=== PATIENT | female | born 2005 | race Caucasian/White ===

== ENCOUNTER 2023-12-01 21:25 | Observation (INO) | payer OTHER, SELFPAY ==
--- NOTE | ~2023-12-01 | MR_ITS ---
EXAMINATION: MR brain/brain stem wo con DATE: 12/03/2023 11:22 INDICATION: New onset seizure. TECHNIQUE: Magnetic resonance imaging (MRI) of the brain and brainstem was performed without intraven ous contrast. COMPARISON: Head CT 12/01/2023 FINDINGS: There is no intracranial hemorrhage, acute infarction, or abnormal intracranial mass lesion . There is a punctate focus of increased T2-weighted signal intensity in the right frontal lobe deep white matter, which is normal as an isolated finding. The hippocampi are normal and symmetric. The ve ntricles are normal in size. There is mild mucosal thickening in the ethmoid sinuses. The orbits are normal. The mastoid air cells are normal. IMPRESSION: 1. Normal brain. Reviewed, dictated and finalized at location A. PREVENTION LEAD IMPRESSION: 1. Normal brain.
--- NOTE | ~2023-12-01 | CT_ITS ---
EXAMINATION: CT brain wo con DATE: 12/01/2023 22:17 INDICATION: new onset seizure . TECHNIQUE: Computed tomography (CT) of the head was performed without intravenous contrast. The mA wa s adjusted according to patient size. Iterative reconstruction technique was employed. The dose-lengt h product was 605.33 mGy-cm. COMPARISON: None. FINDINGS: No acute intracranial hemorrhage or extra-axial fluid collection. No hydrocephalus, mass, or herniation. No acute ischemic infarct. Unremarkable dural venous sinus attenuation. No acute osseous abnormality. The aerated spaces are clear. IMPRESSION: No acute intracranial process. Reviewed, dictated and finalized at location K. [employer]SH[employer] B[employer]ER
[2023-12-01 21:24] VITALS: BP 146/95; PULSE 136; RESP 19; TEMP 37.2; O2SAT 100
[2023-12-01 21:30] VITALS: BP 146/95; PULSE 138; RESP 21; O2SAT 100
--- NOTE | 2023-12-01 21:40 | ECG_ITS ---
Measurements Intervals [place] Rate: 136 P: 48 CT: 136 QRS: 59 QRSD: 75 T: 37 QT: 353 QTc: 533 Interpretive Statements SINUS TACHYCARDIA NONSPECIFIC T-WAVE ABNORMALITY- INFERIOR LEADS ABNORMAL ECG NO PREVIOUS ECG AVAILABLE FOR COMPARISON Electronically Signed On 12-02-2023 16:29:31 [employer] by Valdemar West D.O.
[2023-12-01 21:47] VITALS: PULSE 133; RESP 19; O2SAT 100
[2023-12-01] MEDS: SODIUM CHLORIDE 0.9% IV 2,000 ML 999 ML IV CONT (21:48)
[2023-12-01 21:52] LABS: Basophils Absolute Auto 0.1 K/mm3 (0.0-0.1); Basophils Percent Auto 0.7 % (0.2-1.2); Eosinophils Absolute Auto 0.6 K/mm3 (0-0.3); Eosinophils Percent Auto 4.4 % (0-4.4); Hematocrit 43.5 % (37.0-47.0); Hemoglobin 14.4 g/dL (12.0-15.0); Immature Granulocyte Absolute 0.05 K/mm3 (0.00-0.031); Immature Granulocyte Percent A 0.4 % (0-0.5); Lymphocytes Absolute Auto 2.37 K/mm3 (0.9-3.2); Lymphocytes Percent Auto 17.7 % (18.3-44.2); Mean Corpuscular HGB Conc 33.1 g/dl (32-36); Mean Corpuscular Hemoglobin 30.3 pg (26-34); Mean Corpuscular Volume 91.4 fl (80-100); Mean Platelet Volume 9.1 fl (7.4-10.4); Monocytes Absolute Auto 0.8 K/mm3 (0.1-0.6); Monocytes Percent Auto 6.3 % (2.6-8.5); Neutrophils Absolute Auto 9.5 K/mm3 (1.3-6.7); Neutrophils Percent Auto 70.5 % (45.5-73.1); Platelet Count Result 375 k/mm3 (150-375); Red Blood Count 4.76 M/mm3 (4.2-5.4); Red Cell Distribution Width 12.1 % (11.5-14.5); White Blood Count 13.4 K/mm3 (4.5-10.0)
[2023-12-01 21:53] LABS: Glucose Point of Care 92 mg/dl (65-105)
[2023-12-01 22:00] VITALS: PULSE 138; RESP 20; O2SAT 100
--- NOTE | 2023-12-01 22:04 | ED.GENADULT ---
HPI - General Adult General Chief complaint: Seizure Stated complaint: NEW ONSET SZ History of Present Illness HPI narrative: This is a 18-year-old female presenting with seizure activity. She was at home playing video games with her family heard a thud from the other room. When they came in she was lying face down on the floor with generalized tonic clonic seizure activity. She then awoke and under 5 minutes. She was then postictal that time. No tongue biting or loss of continence. Of note the patient has been on Xanax for 2 years. She ran out of her prescription 3 days ago and has not taken any. Additionally the patient does not sleep very much at night typically gets for 5 hours of sleep a night she is playing video games. Denies use of drugs or alcohol. no history of seizures. Related Data Allergies Allergy/AdvReac Type Severity Reaction Status Date / Time No Known Allergies Allergy Mild Unverified 06/24/09 19:24 [facility] Past Medical History Medical History Anxiety Asthma Exam Narrative: APPEARANCE: No apparent distress. Head: atraumatic. EYES: EOMI, NOSE: Atraumatic NECK: Trachea midline RESPIRATORY: No increased rate of breathing , clear to auscultation CARDIOVASCULAR: RRR, ABDOMINAL: Non-distended MUSCULOSKELETAl: No obvious deformities NEURO: Alert.Cranial nerves 2-12 grossly intact. Sensation light touch, motor function cerebellar function intact for 4 extremities. Gait exam was normal. SKIN:: Warm, dry. Normal color PSYCHIATRIC: Normal affect Course Vital Signs Vital signs: Vital Signs Temperature 98.9 F 12/01/23 21:24 Pulse Rate 136 H 12/01/23 21:24 Respiratory Rate 19 12/01/23 21:24 Blood Pressure 146/95 H 12/01/23 21:24 Pulse Oximetry 100 12/01/23 21:24 Oxygen Delivery Room Air 12/01/23 21:24 Temperature 98.9 F 12/01/23 21:24 Pulse Rate 126 H 12/02/23 00:33 Respiratory Rate 23 H 12/02/23 00:10 Blood Pressure 140/90 12/02/23 00:10 Pulse Oximetry 100 12/02/23 00:31 Oxygen Delivery Room Air 12/02/23 00:31 Medical Decision Making MDM Narrative Medical decision making narrative: -Course: 18-year-old female presenting with new onset seizure. Patient is at increased risk factor for seizure due to recent cessation of benzodiazepines ,lack of sleep, and UTI. On my evaluation has no neurologic deficits and returned to baseline mental status. CT head/lab work within normal limits. Patient is persistently tachycardic despite fluid resuscitation and Valium administration. Patient to be placed in observation for evaluation by Neurology. -DDX includes but is not limited to: New onset seizure, benzo withdrawal -Co-morbidities complicating care: anxiety, asthma -Social determinants of health: unemployed, lives with her mom -Hx from independent Sources: mother father bedside -Independent interpretation of studies: White count of 13.4. -Discussion of Management/Consultants: Clive willamsist -Interventions: 10 mg Valium -Shared decision making / Disposition: observation. Vital Signs Vital Signs: Vital Signs Temperature 98.9 F 12/01/23 21:24 Pulse Rate 136 H 12/01/23 21:24 Respiratory Rate 19 12/01/23 21:24 Blood Pressure 146/95 H 12/01/23 21:24 Pulse Oximetry 100 12/01/23 21:24 Oxygen Delivery Room Air 12/01/23 21:24 Temperature 98.9 F 12/01/23 21:24 Pulse Rate 126 H 12/02/23 00:33 Respiratory Rate 23 H 12/02/23 00:10 Blood Pressure 140/90 12/02/23 00:10 Pulse Oximetry 100 12/02/23 00:31 Oxygen Delivery Room Air 12/02/23 00:31 Lab Data 12/01/23 21:44 12/01/23 22:30 Labs: Lab Results 12/01/23 12/01/23 12/01/23 Range/Units 21:44 21:51 22:30 WBC 13.4 H (4.5-10.0) K/mm3 RBC 4.76 (4.2-5.4) M/mm3 Hgb 14.4 (12.0-15.0) g/dL Hct 43.5 (37.0-47.0) % MCV 91.4 (80-100) fl MCH 30.3
[2023-12-01 23:02] LABS: Ethanol < 10 mg/dL (<10)
[2023-12-01 23:05] LABS: Alanine Aminotransferase 13 U/L (6-35); Alkaline Phosphatase 69 U/L (38-126); Anion Gap 8 mmol/L (8-16); Aspartate Amino Transferase 18 U/L (14-36); Bilirubin,Total 0.3 mg/dL (0.2-1.3); Blood Urea Nitrogen 7 mg/dL (7-17); Calcium 8.5 mg/dL (8.4-10.2); Carbon Dioxide 23 mmol/L (22-30); Chloride 106 mmol/L (98-107); Estimated CRCL calculation 106 ml/min; Estimated Glomerular Filt Rate > 60; Glucose 111 mg/dL (65-110); Sodium 137 mmol/L (137-145)
[2023-12-01] MEDS: diazePAM INJ (*CRX) 10 MG/2 ML SYRINGE IV PUSH (23:15)
[2023-12-02] VITALS (13 sets, daily range): BP systolic 127–140; BP diastolic 79–90; PULSE 100–137; RESP 15–23; TEMP 36.3–36.6; O2SAT 95–100; BMI 32.1
[2023-12-02 00:35] LABS: Appearance Urine Cloudy (Clear); Bacteria Urine 4+ /hpf; Bilirubin Urine Negative (Negative); Blood Urine Negative (Negative); Color Urine Yellow (Yellow); Glucose Urine UA Negative (Negative); Ketones Urine Negative (Negative); Leukocyte Esterase Ur 1+ LEU/UL (Negative); Nitrate Urine Negative (Negative); Non Pathogenic Casts 0-2; Protein Urine Negative (Negative); RBC Urine 0-2 /hpf (0-2); Specific Grav Ur 1.008 (1.001-1.035); Squamous Epithelial Cell Urine Many /hpf (Few); Urobilinogen Urine 0.2 mg/dL (<2.0); WBC Urine 51-100 /hpf
[2023-12-02 00:37] LABS: Add Urine Microscopic? YES
[2023-12-02 00:52] LABS: Barbiturate Screen Urine Negative (Negative); Benzodiazepines Screen Urine Positive (Negative)
[2023-12-02 01:01] LABS: Amphetamine Screen Urine Negative (Negative); Cannabinoid Screen Urine Negative (Negative); Cocaine Screen Urine Negative (Negative); Methadone Screen Urine Negative (Negative); Opiate Screen Urine Negative (Negative); Phencyclidine Screen Urine Negative (Negative)
--- NOTE | 2023-12-02 03:23 | ADMGEN ---
This patient, Jaclyn Sarabia, was admitted to 3 [facility] Surg Room 325-01. Patient/family oriented to hospital policies and general routines including ID bracelet, bed and alarms, visiting hours, pain management, procedures, bathroom and other care routines, personal items, smoking policy, room service/diet, and visiting hours. Information on how to activate the Rapid Response Team has been discussed. Patient/Family are encouraged to report perceived risks to care and to ask questions if they do not understand what they are told or what they should do.
[2023-12-02] MEDS: ALBUTEROL SULFATE (*SP) AEROSOL 1 PUFF 2 PUFF INHALATION (05:05)
[2023-12-02] MEDS: ALPRAZolam (*CRX) 0.5 MG TABLET PO ×2 (05:11→12:02)
[2023-12-02 09:03] LABS: Basophils Absolute Auto 0.1 K/mm3 (0.0-0.1); Basophils Percent Auto 0.8 % (0.2-1.2); Eosinophils Absolute Auto 0.5 K/mm3 (0-0.3); Hematocrit 38.5 % (37.0-47.0); Hemoglobin 12.8 g/dL (12.0-15.0); Immature Granulocyte Absolute 0.08 K/mm3 (0.00-0.031); Immature Granulocyte Percent A 0.8 % (0-0.5); Lymphocytes Absolute Auto 3.48 K/mm3 (0.9-3.2); Lymphocytes Percent Auto 33.3 % (18.3-44.2); Mean Corpuscular HGB Conc 33.2 g/dl (32-36); Mean Corpuscular Hemoglobin 30.5 pg (26-34); Mean Corpuscular Volume 91.9 fl (80-100); Monocytes Absolute Auto 0.8 K/mm3 (0.1-0.6); Neutrophils Absolute Auto 5.5 K/mm3 (1.3-6.7); Neutrophils Percent Auto 52.1 % (45.5-73.1); Platelet Count Result 319 k/mm3 (150-375); Red Blood Count 4.19 M/mm3 (4.2-5.4); Red Cell Distribution Width 12.3 % (11.5-14.5); White Blood Count 10.4 K/mm3 (4.5-10.0)
[2023-12-02 09:15] LABS: Anion Gap 9 mmol/L (8-16); Blood Urea Nitrogen 4 mg/dL (7-17); Calcium 9.2 mg/dL (8.4-10.2); Carbon Dioxide 24 mmol/L (22-30); Chloride 108 mmol/L (98-107); Estimated CRCL calculation 104 ml/min; Estimated Glomerular Filt Rate > 60; Glucose 92 mg/dL (65-110); Sodium 141 mmol/L (137-145)
--- NOTE | 2023-12-02 11:03 | WPDNEURCNPN ---
Assessment and Plan Assessment and plan (1) New onset seizure: Code(s): R56.9 - Unspecified convulsions Status: Acute (2) Chronically on benzodiazepine therapy: Code(s): Z79.899 - Other fdc (current) drug therapy Status: Acute (3) Anxiety: Code(s): F41.9 - Anxiety disorder, unspecified Status: Acute Plan 1. Generalized seizure question related to the drugs withdrawal or with underlying basic diagnosis of lower threshold for the seizure disorder. Initial CT scan of the head is negative will obtain the EEG and then MRI of the brain as well further discussion will be made with the family accordingly. Consult date: 12/02/23 HPI: Jaclyn Sarabia is a 18 year old female Admitted to the hospital through the emergency room for the possibility of seizure. As per the information she was at home playing video games when her family heard a thud from the other room and when he came in her room she was laying face down on the floor with shaking both upper and lower extremities she awoke [id number] later but definitely was in postictal condition she did not lose the control of the bowel bladder patient had been taking Xanax for more than 2 years and has run out of the prescription medication 3 days ago she does not sleep very well she gave no history taking any other drugs or alcohol. She is not allergic to any medication. And initial exam in the emergency room revealed her to have no focal neurological deficit she was afebrile with blood pressure 146/95 her routine lab studies including the CBC revealed only mild leukocytosis basic metabolic panel was normal and all the routine studies of the are negative. Drug screen was negative alcohol level was less than 10. Initial CT scan of the head was normal. Review of Systems Review of Systems: All systems reviewed & are unremarkable except as noted in HPI and below PMFSH Past Medical History Medical History Anxiety Asthma Social History Social History Smoking status: Never smoker Second hand tobacco smoke exposure: Yes Alcohol intake: never Substance use: never Do You Feel Safe in your Home?: Yes Lack of Transportation: No Lack of Food: Never True Current Housing: I Have Housing Concerned About Future Housing: No Difficulty Paying Gas/Electric Bills: No Difficulty Paying for Meds: No Currently Unemployed: YES Education: High School Diploma/GED Difficulty w/ Childcare or Family Care: No Spiritual care concerns: No Meds Home Medications and Allergies Home Medications Medication Instructions Recorded Confirmed Type albuterol sulfate 90 mcg/actuation 2 puff inhalation Q4-6H PRN 12/02/23 12/02/23 History aerosol inhaler Shortness Of Breath alprazolam 0.5 mg tablet 0.5 mg PO TID PRN Anxiety 12/02/23 12/02/23 History bupropion HCl 150 mg 24 hr tablet, 150 mg PO DAILY 12/02/23 12/02/23 History extended release norethindrone 1 mg-ethinyl 1 tablet PO DAILY 12/02/23 12/02/23 History estradiol 20 mcg (24)-iron 75 mg (4) tablet (Blisovi 24 Fe) venlafaxine 37.5 mg 37.5 mg PO DAILY 12/02/23 12/02/23 History capsule,extended release 24 hr Allergies Allergy/AdvReac Type Severity Reaction Status Date / Time No Known Allergies Allergy Mild Unverified 12/02/23 04:04 Vital Signs Vital Signs - 24 hr 12/01/23 21:24 12/02/23 00:31 12/02/23 00:33 Temperature 37.2 C Pulse Rate 136 H 126 H Respiratory Rate 19 Blood Pressure 146/95 H Pulse Oximetry 100 100 Oxygen Delivery Room Air Room Air 12/01/23 21:30 12/01/23 21:47 12/01/23 22:00 Temperature Pulse Rate 138 H 133 H 138 H Respiratory Rate 21 H 19 20 Blood Pressure 146/95 H Pulse Oximetry 100 100 100 Oxygen Delivery 12/02/23 00:09 12/02/23 00:10 12/02/23 01:49 Temperature Pulse Rate 137 H 126 H 108 H Resp
--- NOTE | 2023-12-02 12:53 | PM.IMHP ---
H&P: HPI History of Present Illness Date/Time: 12/02/23 12:53 Chief Complaint: new onset seizure activity Narrative: Patient is 18 YO female with only PMH of anxiety admitted for seizure activity. Her mother is at the bedside and provides additional history. She was at home playing video games in her bed when her family heard a thud from the other room. When they came in she was lying face down on the floor with rapid flailing and body movements. Her mother could not tell me how long this lasted, but her eyes were temporarily blood shot and her lips were blue upon turning her over. She awaoke, but wanted to fall back asleep. She initially could not answer simple questions and was confused. The patient does not remember any of the seizure or how she got to a sitting up position. She was postictal that time. No tongue biting or loss of continence. Only minor spot on her left elbow from the carpet. Patient has been on Xanax for 2 years, but had not taken for 3 days as she ran out of her prescription. She was switched to Wellbutrin from her previous anti-depressant approximately 3 months ago which she has been taking. Mother reports her paternal grandmother had history of seizures which also began after taking the same anti-depressant. Patient does not sleep very much at night, typically only gets for 5 hours of sleep a night. Denies use of drugs or alcohol. No history of seizures in infancy or herself or immediate family. Patient reportedly did not eat much yesterday, but no known BS regulation issues or DM. Patient has had UTI infections before, but usually has concurrent symptoms which she did not this time. Her UA was indicative on infection, UA culture pending but continuing Rocephin. CT head was negative for injury, trauma or acute process. UDS was positive for benzodiazepines only, blood alcohol negative. Labs otherwise unremarkable aside from mild leukocytosis. Neurology consulted and ordered EEG and MRI, pending results. EKG ordered and pending. Will continue to nonitor and await neurology evaluation. Holding current antidepressants, but will continue Xanax. Review of Systems Review of Systems: All systems reviewed & are unremarkable except as noted in HPI and below PMFSH Past Medical History Medical History Anxiety Asthma Social History Social History (Reviewed 12/02/23 @ 13:02 by YINKA Juan Smoking status: Never smoker Second hand tobacco smoke exposure: Yes Alcohol intake: never Substance use: never Do You Feel Safe in your Home?: Yes Lack of Transportation: No Lack of Food: Never True Current Housing: I Have Housing Concerned About Future Housing: No Difficulty Paying Gas/Electric Bills: No Difficulty Paying for Meds: No Currently Unemployed: YES Education: High School Diploma/GED Difficulty w/ Childcare or Family Care: No Spiritual care concerns: No Meds Home Medications and Allergies Home Medications Medication Instructions Recorded Confirmed Type albuterol sulfate 90 mcg/actuation 2 puff inhalation Q4-6H PRN 12/02/23 12/02/23 History aerosol inhaler Shortness Of Breath alprazolam 0.5 mg tablet 0.5 mg PO TID PRN Anxiety 12/02/23 12/02/23 History bupropion HCl 150 mg 24 hr tablet, 150 mg PO DAILY 12/02/23 12/02/23 History extended release norethindrone 1 mg-ethinyl 1 tablet PO DAILY 12/02/23 12/02/23 History estradiol 20 mcg (24)-iron 75 mg (4) tablet (Blisovi 24 Fe) venlafaxine 37.5 mg 37.5 mg PO DAILY 12/02/23 12/02/23 History capsule,extended release 24 hr Allergies Allergy/AdvReac Type Severity Reaction Status Date / Time No Known Allergies Allergy Mild Unverified 12/02/23 04:04 Vital Signs Vital Signs - 24 hr 12/01/23 21:24 12/02/23 00:31 12/02/23 00:33 Temperature 98.9 F Pulse Rate 136 H 126 H Respiratory Rate 19 Blood Pressure 146/95 H Pulse Oximetry 100 100 O
[2023-12-02] MEDS: ACETAMINOPHEN 325 MG TABLET 650 MG PO (21:39)
[2023-12-03 06:00] VITALS: BP 123/80; PULSE 105; RESP 22; TEMP 36.6; O2SAT 97
[2023-12-03 07:31] LABS: Hematocrit 39.8 % (37.0-47.0); Hemoglobin 13.3 g/dL (12.0-15.0); Mean Corpuscular HGB Conc 33.4 g/dl (32-36); Mean Corpuscular Hemoglobin 30.6 pg (26-34); Mean Corpuscular Volume 91.5 fl (80-100); Mean Platelet Volume 8.9 fl (7.4-10.4); Platelet Count Result 316 k/mm3 (150-375); Red Blood Count 4.35 M/mm3 (4.2-5.4); White Blood Count 8.3 K/mm3 (4.5-10.0)
[2023-12-03 07:43] LABS: Anion Gap 11 mmol/L (8-16); Blood Urea Nitrogen 8 mg/dL (7-17); Calcium 9.2 mg/dL (8.4-10.2); Carbon Dioxide 25 mmol/L (22-30); Chloride 104 mmol/L (98-107); Estimated CRCL calculation 104 ml/min; Estimated Glomerular Filt Rate > 60; Glucose 87 mg/dL (65-110); Potassium 3.9 mmol/L (3.4-5.0); Sodium 140 mmol/L (137-145)
[2023-12-03] MEDS: buPROPion HCL XL (24 HR) 150 MG TABCR PO (08:37)
[2023-12-03] MEDS: VENLAFAXINE HCL XR 37.5 MG CAP PO (08:37)
--- NOTE | 2023-12-03 09:06 | WPDNEUROLOGY ---
Neurology EEG Report General Information Date of Study: 12/02/23 TEST eeg DIAGNOSIS New onset seizure CONDITION OF RECORDING awake drowsy and sleep EEG NUMBER [id number] CLINICAL HISTORY patient's mother reported patient was playing her box last night, got up to use the bathroom, fell face 1st and was convulsing with no history of seizures in the past EEG DESCRIPTION basic resting occipital frequency consists of low-voltage 11 to 13 hertz per 2nd alpha admixed with low-voltage 15 to 18 hertz per 2nd beta activity. Bilateral symmetrical sleep activity seen during sleep with symmetrical K complexes as well. Hyperventilation not done. Photic stimulation not done. Non paroxysmal. Nonfocal. Nonlateralizing. IMPRESSION Normal record
--- NOTE | 2023-12-03 12:54 | PM.DS ---
DS: Admitting Diagnosis Discharge Date 12/03/23 Admitting Diagnosis new onset seizure DS: Discharge Diagnosis Discharge Diagnosis (1) New onset seizure: Code(s): R56.9 - Unspecified convulsions Status: Acute Assessment and Plan: CT brain showed no acute intracranial process. Neurology consulted - follow up outpatient in 6 months Keppra 500 BID EEG, MRI were both normal EKG unremarkable (2) UTI (urinary tract infection): Code(s): N39.0 - Urinary tract infection, site not specified Status: Ruled-out Assessment and Plan: UA culture negative (3) Anxiety: Code(s): F41.9 - Anxiety disorder, unspecified Status: Acute Assessment and Plan: holding anti-depressants per mother continue home Xanax (4) Asthma: Code(s): J45.909 - Unspecified asthma, uncomplicated Status: Acute Assessment and Plan: continue PRN inhaler DS: Summary Hospital Course Hospital Course: Patient is 18 YO female with only PMH of anxiety and asthma admitted for new onset seizure activity. Patient has been on Xanax for 2 years, but had not taken for 3 days as she ran out of her prescription. She was switched to Wellbutrin from her previous anti-depressant approximately 3 months ago which she has been taking. Mother reports her paternal grandmother had history of seizures which also began after taking the same anti-depressant. Patient does not sleep very much at night, typically only gets for 5 hours of sleep a night. Denies use of drugs or alcohol. No history of seizures in infancy or herself or immediate family. Patient reportedly did not eat much yesterday, but no known BS regulation issues or DM. Patient has had UTI infections before, but usually has concurrent symptoms which she did not this time. Her UA was indicative of infection, UA culture was negative. Will d/c AB. CT head was negative for injury, trauma or acute process. UDS was positive for benzodiazepines only, blood alcohol negative. Labs otherwise unremarkable aside from mild leukocytosis. Neurology consulted and ordered EEG and MRI, both were normal. EKG unremarkable. Neurology to follow up outpatient in 6 months, will continue Keppra 500 mg BID. Holding current antidepressants, but will continue Xanax. Status at Discharge Functional status at discharge: independent ambulation Overall status at discharge: patient is back to baseline Time Spent with Patient Time attestation: Total time spent providing and/or coordinating discharge services: Exam Narrative: GENERAL: Well-nourished, well-appearing young female. No acute distress. Head: atraumatic. EYES: EOMI, PERRLA NECK: Trachea midline, supple RESPIRATORY: Lungs clear to auscultation CARDIOVASCULAR: RRR, no murmurs. ABDOMINAL: Non-distended, non-tender. BS present and active. MUSCULOSKELETAL: No obvious deformities, strength 5/5. No edema. normal ROM NEURO: Alert and oriented x4. .Cranial nerves 2-12 grossly intact. Sensation light touch, motor function cerebellar function intact for 4 extremities. Gait exam was normal. SKIN: Warm, dry. Normal color PSYCHIATRIC: Normal affect. Pleasant and appropriate. No SI or hallucinations. DS: Data Data Completed and Pending Labs on day of discharge: Labs from last 24 hours 12/03/23 07:18 WBC 8.3 RBC 4.35 Hgb 13.3 Hct 39.8 MCV 91.5 MCH 30.6 MCHC 33.4 RDW 12.0 Plt Count 316 MPV 8.9 Sodium 140 Potassium 3.9 Chloride 104 Carbon Dioxide 25 Anion Gap 11 BUN 8 Creatinine 0.70 Estim Creat Clear Calc 104 Estimated GFR > 60 Glucose 87 Calcium 9.2 Discharge Plan Discharge Attending physician on discharge: Eliot Gentile Consulting providers: Shar Garcia Discharging Clinician: Bess Lacy Anticipated Discharge Date/Time: 12/03/23 12:03 Patient Disposition: Home, Self-Care Activity: as tolerated Diet: regular Discharge Instructions: No driving for
[2023-12-03] MEDS: ALPRAZolam (*CRX) 0.5 MG TABLET PO (12:58)
== END 2023-12-03 13:28 | disposition home or self-care (01) ==
LOC: ANHED 12-02 01:23 → ANH3MEDSUR 12-02 03:11
PROVIDERS: Nurse Practitioner; Admitting Provider Internal Medicine; Emergency Provider Emergency Medicine; PCP Family Medicine; Visit Provider Internal Medicine
DX: R56.9 Unspecified convulsions (principal); N39.0 Urinary tract infection, site not specified; F41.9 Anxiety disorder, unspecified; J45.909 Unspecified asthma, uncomplicated; Z79.51 Long term (current) use of inhaled steroids; Z79.3 Long term (current) use of hormonal contraceptives; Z79.899 Other long term (current) drug therapy; Z84.89 Family history of other specified conditions
CPT/HCPCS: 36415; 70450; 70551; 80048; 80053; 80307; 81001; 81025; 82948; 84443; 85025; 85027; 87086; 93005; 95816; 96361; 96365; 96374; 99285; A9270; G0378; J0696; J3360; J7030

== ENCOUNTER 2025-07-16 13:01 | Emergency (ER) | payer OTHER, MEDICAID, SELFPAY ==
[2025-07-16 13:11] VITALS: BP 136/80; PULSE 129; RESP 20; TEMP 37.1; O2SAT 98
--- NOTE | 2025-07-16 13:23 | ED.FEMALEGU ---
HPI - Female Genitourinary General Chief complaint: Urogenital-Female Stated complaint: Needs A Test patient presents to the [facility] with complaints of missed menstrual cycle. Noted she is 26 days late. Patient reports at home testing has been negative. Patient is sexually active with 1 partner, denies any use of control, denies any concern for STDs at this time. Patient does also report right-sided lower back pain and abdominal cramping. denies fever, chills, body aches, burning with urination, blood in urine, vaginal discharge, nausea, vomiting, diarrhea. Related Data Home Medications ?Medication ?Instructions ?Recorded ?Confirmed ?Last Taken ?Type albuterol sulfate 90 mcg/actuation 2 puff inhalation Q4-6H PRN 12/02/23 12/02/23 Unknown History aerosol inhaler Shortness Of Breath bupropion HCl 150 mg 24 hr tablet, 150 mg PO DAILY 12/02/23 12/02/23 Unknown History extended release norethindrone 1 mg-ethinyl 1 tablet PO DAILY 12/02/23 12/02/23 Unknown History estradiol 20 mcg (24)-iron 75 mg (4) tablet (Blisovi 24 Fe) venlafaxine 37.5 mg 37.5 mg PO DAILY 12/02/23 12/02/23 Unknown History capsule,extended release 24 hr sertraline 50 mg tablet mg 07/16/25 Unknown History Allergies Allergy/AdvReac Type Severity Reaction Status Date / Time No Known Allergies Allergy Mild Verified 07/16/25 13:04 Review of Systems Constitutional: Constitutional: Reports as per HPI, Denies chills and Denies fatigue Eyes: Eyes: Reports no additional eye complaints Cardiovascular: Cardiovascular: Reports no additional cardiovascular complaints Respiratory: Respiratory: Reports no additional respiratory complaints Gastrointestinal: Gastrointestinal: Reports as per HPI, Reports abdominal pain ( Lower abdominal cramping), Denies constipation, Denies heartburn, Denies diarrhea, Denies nausea and Denies vomiting Genitourinary: Genitourinary: Reports as per HPI, Denies abnormal vaginal bleeding, Denies hematuria, Denies nocturia, Denies genital lesions, Denies dysuria, Denies pelvic pain, Denies flank pain, Denies urinary incontinence and Denies vaginal discharge Comments: missed menstrual cycle. Twenty-six days late. Musculoskeletal: Musculoskeletal: Reports as per HPI and Reports back pain Integumentary/Breasts: Skin/Breast: Reports as per HPI Neurologic: Reports as per HPI, Denies headache(s) and Denies weakness Psychiatric: Psychiatric: Reports no additional psychiatric complaints Endocrine: Endocrine: Reports no additional endocrine complaints Hematologic/Lymphatic: Hematologic/Lymphatic: Reports no additional hematologic/lymphatic complaints Allergic/Immunologic: Allergic/Immunologic: Reports no additional allergic/immunologic complaints PMFSH Past Medical History Medical History Anxiety Asthma Social History Social History (System 12/15/23 @ 09:50 by Parveen Dunn) Smoking status: Never smoker Second hand tobacco smoke exposure: Yes Alcohol intake: never Substance use: never Do You Feel Safe in your Home?: Yes Lack of Transportation: No Lack of Food: Never True Current Housing: I Have Housing Concerned About Future Housing: No Difficulty Paying Gas/Electric Bills: No Difficulty Paying for Meds: No Currently Unemployed: YES Education: High School Diploma/GED Difficulty w/ Childcare or Family Care: No Spiritual care concerns: No Exam Const: General: healthy appearing and no acute distress Nutritional Appearance: well nourished Orientation/consciousness: patient oriented x3 Limitations: no limitations Resp: Effort & Inspection: normal respiratory effort Auscultation: clear to auscultation bilaterally Cardio: Rate: regular rate Rhythm: regular rhythm GI: Inspection: non-distended GI Palp: Yes Soft to palpation, No Tenderness to palpation present (GI), No Guarding due to palpation present (GI), No Rigid due to palpation, No Hernia present, No Palpable mass present and No Rebound tenderness present Auscultation: normal bowel sounds : General: Yes bladder normal to palpation and No no CVA tenderness Back/Spine/Pelvis: Back: no CVA tenderness Skin: General skin exam: normal color Rashes: no rashes Wounds: no wounds Neuro: General: patient oriented x3 Speech: normal speech Gait exam (Neuro): Normal gait present Psych: Appearance: grossly normal Mental Status: mental status grossly normal Affect: normal affect Attitude: cooperative Course Course Level of Care: Express Care Visit Vital Signs Vital signs: Vital Signs Temperature 98.8 F 07/16/25 13:11 Pulse Rate 129 H 07/16/25 13:11 Respiratory Rate 20 07/16/25 13:11 Blood Pressure 136/80 07/16/25 13:11 Pulse Oximetry 98 07/16/25 13:11 Oxygen Delivery Room Air 07/16/25 13:11 Temperature 98.8 F 07/16/25 13:11 Pulse Rate 129 H 07/16/25 13:11 Respiratory Rate 20 07/16/25 13:11 Blood Pressure 136/80 07/16/25 13:11 Pulse Oximetry 98 07/16/25 13:11 Oxygen Delivery Room Air 07/16/25 13:11 MDM - Female Genitourinary MDM Narrative Medical decision making narrative: testing in clinic negative. UA completed in clinic. Patient has scheduled acid treater August 05. Educated patient on several signs and symptoms that would need ER evaluation The patient was evaluated by myself in the [facility] care. History is obtained from patient who is an independent historian and physical exam was performed. Available medical records were reviewed at this time. Exam findings show no acute concerns or changes; patient is non-toxic appearing and is in no distress. Patient is appropriate for outpatient treatment and follow-up. I have evaluated and discussed social determinants of health with the patient that could potentially impact subsequent diagnosis and treatment plans. Differential diagnosis and treatment plan were discussed with the patient. Patient agrees with discussion and after shared medical decision making agrees with plan of care. All questions were answered to the patient's satisfaction. Differential Diagnosis Differential diagnosis: Likely urinary tract infection, bacterial vaginosis, trichomoniasis, ovarian cyst, vaginitis, ruptured ovarian cyst and cystitis Medical Records Attestation: I reviewed the patient's medical records. Lab Data Attestation: I reviewed the patient's lab results. Discharge Plan Discharge Clinical Impression: Encounter for test with result negative, Missed menses Patient Disposition: Home Condition: Stable Instructions: Antibiotic Form, Menorrhagia (ED) Additional Instructions: your testing is negative and clinic today. There are no significant signs of urinary tract infection in your urine. We will send this for culture for further evaluation. We will call you if you need to be put on antibiotics. 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 If you began to have significant abdominal pain cramping, vaginal bleeding, or any other concerning symptoms you should be evaluated in the emergency room with labs and ultrasound. May use Tylenol or ibuprofen for your lower back pain and abdominal cramping. Patient Language: Russian Prescriptions: No Action sertraline 50 mg tablet venlafaxine 37.5 mg capsule,extended release 24hr 37.5 mg PO DAILY albuterol sulfate 90 mcg/actuation HFA aerosol inhaler 2 puff INHALATION Q4-6H PRN (Reason: Shortness Of Breath) bupropion HCl 150 mg tablet extended release 24 hr 150 mg PO DAILY Blisovi 24 Fe 1 mg-20 mcg (24)/75 mg (4) tablet 1 tablet PO DAILY levetiracetam [Keppra] 500 mg Tablet 500 mg PO Q12HR Qty: 60 0RF Follow-up/Referrals: Priscila,Carlene Martin MD [Primary Care Provider] Time of Disposition: 13:38
[2025-07-16 13:26] LABS: BEDSIDEPREGUCG Negative (Negative)
[2025-07-16 13:36] LABS: EDUAAPPEAR Cloudy; EDUABILI Negative (Negative); EDUABLOOD Negative (Negative); EDUACOLOR1 Yellow; EDUAGLUCOSE Negative (Negative); EDUAKETONE Negative (Negative); EDUALEUKO Trace (Negative); EDUANITRATE Negative (Negative); EDUAPH 7.0; EDUAPROTEIN Negative (Negative); EDUASPGRAVITY 1.020; EDUAUROBILI 0.2
== END 2025-07-16 13:45 | disposition home or self-care (01) ==
PROVIDERS: Emergency Provider Nurse Practitioner Family; PCP Family Medicine
DX: Z32.02 Encounter for pregnancy test, result negative (principal); N91.2 Amenorrhea, unspecified; J45.909 Unspecified asthma, uncomplicated; F41.9 Anxiety disorder, unspecified
CPT/HCPCS: 81003; 81025; 87086; 99213; G0463